=== PATIENT | female | born 1955 | race Caucasian/White ===

== ENCOUNTER 2023-08-04 10:07 | Outpatient (AMB) | payer MEDICARE, MEDICAID, SELFPAY ==
--- NOTE | 2023-08-04 10:35 | HO.SPINEOV ---
Intake Intake Visit Reasons: Back pain Intake Note: Ms. Blackwell is here today c/o both neck and low pain. MRI done @ [facility]/brought laz. 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 She reports that she has left-sided arm pain for the last 20+ years and feels as though it has worsened in the last couple of years. She does reports she had a recent EMG completed which showed significant carpal tunnel and cubital tunnel on the left side. She does report a previous history of carpal tunnel on the right side with ?similar symptoms which she reports was resolved after a R sided carpal tunnel release surgery. In regards to her low back, Rachelle reports that she has had low back pain for the past 36 years. She identifies an inciting incident of lifting heavy wooden pallets 36 years ago which originally started her low back pain. She states that her back pain has waxed and waned over the years and became more severe in the last 2 years causing her to seek evaluation. She reports mild radiation of her low back pain into her posterior thighs, with associated numbness/burning/tingling. She reports that she utilizes at home tramadol, Tylenol, and Voltaren gel to help alleviate her symptoms. She reports modest relief with these. She is currently in physical therapy for left upper extremity and feels as though this is also modestly helpful. She does have a history of previous cortisone injections both in the cervical and lumbar spine completed by Dr. Morales in [place], [place]. She reports mixed relief with these injections. She has a recent pertinent medical history of acute encephalitis with bacteremia for which she was treated with a extensive hospital admission and antibiotics in October of 2022. PMH: Hx substance use disorder(s), Peripheral neuropathy, cubital tunnel syndrome on the left, carpal tunnel syndrome on the left, type 2 diabetes, anxiety, depression, congestive heart failure, hypothyroidism, retinopathy, hyperlipidemia, hypertension, iron-deficiency anemia, prior right-sided carpal tunnel release, bilateral knee replacements. Social hx: Patient does not smoke, reports no substance use. Medications: Lamotrigine, bupropion, tramadol, NovoLog, Basaglar, metformin, Ozempic, ketorolac, atorvastatin, furosemide, Lyrica, spironolactone, amlodipine, carvedilol, levothyroxine, lisinopril, aspirin, diclofenac, fluticasone, Tylenol, biotin, ferrous sulfate, docusate sodium, glucosamine. Allergies: Meloxicam,Tenormin. Physical exam: The patient has 5/5 strength in her upper and lower extremities. She reports numbness/dullness in her posterior thighs worse on the left than the right. She also reports some tingling/numbness in her toes (states she has had this for a very long time and believes it is related to her neuropathy) The rest of her sensation is intact. Her reflexes are 2+ intact. She is able to ambulate well however does have some pain reported when rising from a seated position. (-) Wayne's, (-) clonus. Imaging review: MRI of the cervical spine shows mild-moderate central cord stenosis at C3-4. There is also mild bilateral foraminal stenosis at C3-4 and C4-5. Moderate right-sided foraminal stenosis noted at C5-6. MRI of the lumbar spine shows moderate central canal stenosis with moderate-severe left foraminal stenosis at L3-4 there is also a grade 2 spondylolisthesis at L4-5 causing severe central canal stenosis at this level. Impression: Rachelle is a pleasant 67-year-old female who comes in today with a complex medical history. Her primary concern/complaint is the pain in her left arm with associated numbness/tingling/burning that radiates all the way down to her left 3rd and 4th digits. Her secondary complaint is her low back pain with radiation of symptoms into her posterior thighs (worse on the left). In regards to her left arm pain, she has an EMG which she brought in to the office today that shows confirmed severe cubital tunnel and carpal tunnel syndrome on the left. She has a pertinent medical history of previously fixed right-sided carpal tunnel syndrome. She reports that she had similar symptoms on the right that she now has on the left that were resolved after carpal tunnel release on the right. Her cervical MRI does not show any impingement that would match her symptoms. I believe that addressing her most concerning symptoms via further discussion regarding a cubital tunnel and/carpal tunnel release on the left side is reasonable. I do not believe her lumbar pathology to be significantly concerning at this time as she has no lower extremity weakness, and no cauda equina syndrome symptoms. Her only significant concern is some posterior thigh radiculopathy. I will review this case in its entirety with Dr. Rubi next week and call the patient back with a decision regarding a plan going forward. The total time spent with this visit with this patient was 70 minutes reviewing history, physical exam, MRI imaging review, and implementation of treatment plan or further diagnostic testing Victor Hugo Rubi MD,PhD [facility] Orders: Orders XR lumbar spine 4V min Today M48.00 - Spinal stenosis, site unspecified Coding Level of Care Code New Pt Level 5 (41617) Diagnoses Spinal stenosis M48.00
== END 2023-08-04 11:46 | disposition home or self-care (01) ==
PROVIDERS: Visit Provider Physician Assistant
DX: M48.00 Spinal stenosis, site unspecified (principal)
CPT/HCPCS: 99205

== ENCOUNTER 2023-08-04 10:07 | Outpatient (REF) | payer MEDICARE, MEDICAID, SELFPAY ==
--- NOTE | ~2023-08-04 | XR_ITS ---
EXAMINATION: XR LUMBOSACRAL SPINE WITH OBLIQUES CLINICAL INFORMATION: Spinal stenosis, site unspecified. COMPARISON: None available. TECHNIQUE: 4 views of the lumbar spine inclusive of flexion and extension views. FINDINGS: Dextroscoliosis of the lumbar spine. Degenerative changes in the bilateral sacroiliac joints. Degenerative changes in the imaged lower lumbar spine. Advanced facet arthritis in the [id number] lumbar spine. Approximately 11 mm anterolisthesis of L4 on L5. Mild 3 mm retrolisthesis of L3 on L4 with flexion and reduces with extension. Multilevel lumbar spondylosis with multilevel loss of disc space height particularly notable at L2-L3, L3-L4 and L4-L5. XR/XR lumbar spine 4V min IMPRESSION: Approximately 11 mm anterolisthesis of L4 on L5. Mild 3 mm retrolisthesis of L3 on L4 with flexion and reduces with extension.
== END 2023-08-04 10:08 | disposition home or self-care (01) ==
LOC: HO.HOSX 10:07
PROVIDERS: Visit Provider Physician Assistant
DX: M48.00 Spinal stenosis, site unspecified (principal)
CPT/HCPCS: 72110; 99202